=== PATIENT | male | born 1945 | race Caucasian/White ===

== ENCOUNTER 2017-10-19 10:19 | Inpatient (IN) | payer MEDICARE, OTHER ==
[~2017-10-19] VITALS: Ht 180.3 cm; Wt 87.5 kg
[~2017-10-19 10:19] MED LIST: CRESTOR20 MG PO; CYMBALTA60 MG PO; LISINOPRIL10 MG PO; NORCO 5-325 TA1 EACH PO
[2017-10-19 10:22] VITALS: BP 102/60
[2017-10-19 11:01] LABS: INFLUENZA A ANTIGEN None Detected (None Detect)
[2017-10-19 11:36] LABS: URINE BILIRUBIN NEGATIVE (Negative); URINE BLOOD TRACE (Negative); URINE CLARITY CLEAR; URINE COLOR YELLOW; URINE GLUCOSE-RANDOM NEGATIVE (Negative); URINE KETONES NEGATIVE (Negative); URINE LEUKOCYTES-REFLEX NEGATIVE (Negative); URINE NITRITE-REFLEX NEGATIVE (Negative); URINE PROTEIN 1+ (Negative); URINE SPECIFIC GRAVITY 1.025 (1.005-1.030); URINE UROBILINOGEN 0.2 E.U./dl (0.2-1.0)
[2017-10-19 12:04] LABS: ABSOLUTE LYMPHOCYTES 0.6 thou/uL (0.8-5.3); ABSOLUTE MONOCYTES 0.6 thou/uL (0.0-1.2); ABSOLUTE NEUTROPHILS 3.8 thou/uL (1.6-8.1); BASOPHILS 0.7 %; EOSINOPHILS 0.1 %; HEMATOCRIT 45.5 % (42.0-52.0); HEMOGLOBIN 15.1 gm/dL (14.0-18.0); LYMPHOCYTES 12.7 %; MCHC 33.2 g/dL (28.0-37.0); MCV 90.3 fL (80.0-100.0); MONOCYTES 11.1 %; MPV 7.2 fl. (7.2-11.1); NUCLEATED RBCS 0 /100WBC; PLATELET COUNT* 172 thou/uL (150-400); POLYS 75.4 %; RBC 5.03 mil/uL (4.50-6.00); RDW-CV 13.4 % (10.5-14.5); WBC 5.1 thou/uL (4.0-11.0)
[2017-10-19 12:14] LABS: ANION GAP 5 mmol/L (7-16); BUN 15 mg/dL (7-18); CALCIUM 7.9 mg/dL (8.5-10.1); CHLORIDE 102 mmol/L (98-107); CO2 30 mmol/L (21-32); CREATININE 1.5 mg/dL (0.6-1.3); GLUCOSE 102 mg/dL (70-99); POTASSIUM 4.7 mmol/L (3.5-5.1); SODIUM 137 mmol/L (136-145)
[2017-10-19 12:17] LABS: APTT 28.9 Seconds (25.0-31.3); INR 1.1; PROTIME 10.7 Seconds (9.20-11.50)
[2017-10-19 12:21] LABS: ALBUMIN 3.6 g/dL (3.4-5.0); ALKALINE PHOSPHATASE 63 U/L (46-116); LIPASE 164 U/L (73-393); SGOT 19 U/L (15-37); SGPT 23 U/L (30-65); TOTAL BILIRUBIN 0.6 mg/dL (<0.1-1.0); TOTAL PROTEIN 7.3 g/dL (6.4-8.2); TROPONIN-I LEVEL <0.06 ng/mL (<0.06)
[2017-10-19 13:41] VITALS: BP 152/70
[2017-10-19 14:00] VITALS: BP 138/68
[2017-10-19] MEDS ORDERED: ABILIFY 5 MG TAB5 M1 PO (14:51)
[2017-10-19] MEDS ORDERED: ASPIR 8181 MG PO (14:52)
--- NOTE | 2017-10-19 16:35 | EKG ---
[place] [address] ELECTROCARDIOGRAM REPORT Name: PATRICK CARLISLE Room: [place] [address] ADM IN .R.#: [id number] Admission: 10/19/17 Attend Phys: Christiano Ellsworth Discharge: Date of : 41 Report #: [id number] THIS REPORT FOR: //name// [facility] ED Test Date: 2017-10-19 Test Time: 10:27:34 Pat Name: PATRICK CARLISLE Department: Room: [facility] Gender: M Animal Skinner: Corrie GARAY : 1945 Requested By: Valerio Bobby Order Number: [id number] MD: Rodney Mcallister Measurements Intervals Norris Rate: 60 P: 56 CO: 155 QRS: 86 QRSD: 90 T: 45 QT: 385 QTc: 385 Interpretive Statements Sinus rhythm Borderline right axis deviation Low voltage, extremity leads No previous ECG available for comparison Electronically Signed On 10-19-2017 16:35:18 HEAD OF OPERATION AND LOGISTICS by Rodney Mcallister [email or web address] <ELECTRONICALLY SIGNED> By: Rodney Mcallister MD, [facility] 10/19/17 1635 26 102 Rodney Mcallister MD, FACC /EPI
--- NOTE | 2017-10-19 18:48 | NUR ---
RECEIVED PT FROM ER 1400. PATIENT IS ALERT/ORIENTED X4. SLOW TO ANSWER QUESTIONS AND HARD OF HEARING. UP WITH ASSIST X1 IN ROOM WITH BATHROOM PRIVILEDGES. GAIT IS UNSTEADY AT THIS TIME AND PATIENT IS A FALL RISK. FALL RISK AGREEMENT SIGNED AND ON CHART. IVF INFUSING. ADMISSION ASSESSMENT AND HISTORY COMPLETE. BED ALARM ON. CALL LIGHT WITHIN REACH. WILL CONTINUE PLAN OF CARE.
[2017-10-20] VITALS: BP 113/44
[2017-10-20 04:00] VITALS: BP 99/48
--- NOTE | 2017-10-20 04:20 | NUR ---
RESTING MOST OF NIGHT WITHOUT COMPLAINTS. DENIES PAIN OR DISCOMFORT. ON ISOLATION. UP AD JOANA TO RESTROOM. DENIES COMPLAINTS OF PAIN OR DISCOMFORT. NO SIGN OF DISTRES. WILL CONT. TO MONITOR.
[2017-10-20 08:00] VITALS: BP 118/63
--- NOTE | 2017-10-20 10:11 | NUR ---
ORDER RECEIVED FOR "OT EVALUATION AND TREATMENT". ENTERED PATIENT'S ROOM AND SPOKE WITH PATIENT FOR LESS THAN 8 MINUTES. ON ENTRY, PT AMBULATING I WITHIN ROOM AND STATING THAT HE HAS JUST SHOWERED WITHOUT ASSIST WHILE STANDING AND IS NOW SHAVING I AT SINK. REPORTS NO DIZZINESS, AND STATES, "I DON'T HAVE A FEVER ANYMORE". PT WITH NO NEED FOR SKILLED INTERVENTION AT THIS TIME.
--- NOTE | 2017-10-20 11:36 | NUR ---
CM SPOKE TO THE PATIENT TO DISCUSS HOME SITUATION, DISCHARGE PLANNING, AND TO INFORM OF THE ROLE OF CM. PATIENT ALERTAND ORIENTED. PATIENT WALES, AND STATES THAT HE HAS ASKED HIS TO BRING HIS HEARING AIDES TO THE HOSPITAL TODAY. PATIENT DRIVES. PATIENT RESIDES AT HOME WITH . PATIENT STATES THAT HE AND HIS SPOUSE MOSTLY EAT OUT. PATIENT OWNS 0 DME. PATIENT HAS NO HX OF HH OR SNF. PATIENT PLANS TO RETURN HOME AT D/C. CM WILL REMAIN AVIALABLE TO ASSIST AND FOLLOW NEEDED.
[2017-10-20 11:53] VITALS: BP 102/55
--- NOTE | 2017-10-20 13:38 | NUR ---
PT'S MEDICAL CHART REVIEWED AND STATUS DISCUSSED W/ NSG. PT UP AD JOANA IN ROOM W/O DME , USING IV POLE. PT VOICES NO CONCERNS REGARDING RETURN TO HOME. STATES HE HAS SUPPORTIVE . ACUTE PT SERVICES ARE NOT INDICATED AT THIS TIME.
[2017-10-20] MEDS ORDERED: OSELB75 PO (14:05)
--- NOTE | 2017-10-20 14:57 | NUR ---
CM WAS INFORMED BY NURSING THAT THE PATIENT WOULD BE D/C'D TODAY. CM SPOKE TO THE PATIENT TO DISCUSS DISCHARGE PLANNING NEEDS AND ANY QUESTIONS OR CONCERNS THAT HE MAY HAVE. PATIENT HAS NO QUESTIONS OR CONCERNS AT THIS TIME, AND DECLINES ANY NEEDS. CM WILL REMAIN AVIALABLE TO ASSIST AND FOLLOW NEEDED.
[2017-10-20 16:24] VITALS: BP 102/55
--- NOTE | 2017-10-20 17:50 | NUR ---
VSS, ASSUMED CARE IN THE AM, ASSESSMENT PERFORMED AND CHARTED, FALL PRECAUTIONS IN PLACE AND CALL LIGHT IN REACH, PT IS A&O4 AND HARD OF HEARING, PT IS UP AD JOANA AND ON RA TRACING SR ON THE MONITOR AND DENIES ANY PAIN, SD GOAL IS TO COMPLETE MRI AND D/C TO HOME ON DAY OF CARE. AT THIS TIME I HAVE RECEVED D/C INSTRUCTIONS, FILLED OUT PT D/C PAPERS PROVITED, MEDICATIIONS CHECKED AND SCRIPTS GIVEN, PT DENIES ANY QUESTIONS OR CONCERNS AT TIME OF D/C IV, AND TELE MONITOR TAKEN OFF, ALL PT BELONGINGS GATHERED AND PLACED WITH PT, PT WAS TAKEN OUT BY WHEEL CHAIR TO CAR WITH STAFF AND SPOUCE, HOURLY ROUNDS COMPLETED AT THIS TIME, AND PT DENIES ANY QUESTIONS OR CONCERNS AT TIME OF D/C
[2018-02-03] MEDS ORDERED: TRAMADOL 50 MG50 MG PO (11:09)
== END 2017-10-20 18:12 | disposition home or self-care (01) | DRG 70 ==
LOC: M.ERS 10:19 → M.2W 12:38 → M.TBA-ER 12:38 → M.2W 13:58
PROVIDERS: Family Medicine; ADMIT Internal Medicine
DX: G93.41 Metabolic encephalopathy (principal); N17.0 Acute kidney failure with tubular necrosis; J11.1 Influenza due to unidentified influenza virus with other respiratory manifestations; I10 Essential (primary) hypertension; E86.0 Dehydration; F32.9 Major depressive disorder, single episode, unspecified; E78.5 Hyperlipidemia, unspecified

== ENCOUNTER → 2018-02-03 | Day surgery (SDC) | payer MEDICARE, OTHER ==
[~2018-02-03] MED LIST changes: +ABILIFY 5 MG TAB5 M1 PO; +ASPIR 8181 MG PO; +OSELB75 PO; +TRAMADOL 50 MG50 MG PO
[2018-02-03 08:00] LABS: HEMATOCRIT 41.8 % (42.0-52.0); HEMOGLOBIN 14.4 gm/dL (14.0-18.0); MCH 30.1 pg (26.0-34.0); MCHC 34.6 g/dL (28.0-37.0); MPV 7.5 fl. (7.2-11.1); RBC 4.8 mil/uL (4.50-6.00); RDW-CV 13.8 % (10.5-14.5); WBC 6.6 thou/uL (4.0-11.0)
[2018-02-03 08:03] LABS: CALCIUM 8.5 mg/dL (8.5-10.1); CREATININE 1.4 mg/dL (0.6-1.3); POTASSIUM 4.1 mmol/L (3.5-5.1)
[2018-02-03 08:08] LABS: ALBUMIN 3.6 g/dL (3.4-5.0); TOTAL BILIRUBIN 0.8 mg/dL (<0.1-1.0); TOTAL PROTEIN 7.3 g/dL (6.4-8.2)
--- NOTE | 2018-02-14 14:38 | OP ---
[address] [address] OPERATIVE REPORT Name: PATRICK CARLISLE JR Room: [facility]#: [id number] Admission: 02/03/18 Attend Phys: Elyse Naqvi DO Discharge: Date of : 41 Report #: [id number] THIS REPORT FOR: //name// CC: Elyse Hubbard DATE OF SERVICE: 02/03/2018 PREOPERATIVE DIAGNOSIS: Recurrent right inguinal hernia. POSTOPERATIVE DIAGNOSIS: Recurrent right inguinal hernia with a direct defect. FINDINGS: A recurrence of a direct defect along the pubic tubercle. The hernia defect contained reducible omentum. SURGEON: Elyse Naqvi DO. JAVA XML DEVELOPER: Franklin Pagan, PGY-3 and Mason Nielsen PGY1. PROCEDURE: Repair of recurrent right inguinal hernia with mesh. ANESTHESIA: General endotracheal and local. ESTIMATED BLOOD LOSS: 10 mL. DRAINS: None. SPECIMENS: None. COMPLICATIONS: None. CONDITION: Stable. DISPOSITION: PACU to home. HISTORY OF PRESENT ILLNESS: The patient is a very pleasant 73-year-old male who is known to me after a hernia repair several years ago. He had done well until several months ago when he began to have pain and a bulge in the right groin area. On physical exam, he had an obvious recurrence of the right inguinal hernia. He was then consented for repair of this area with possible mesh. Risks discussed included bleeding, infection, pain, scar formation, recurrence, mesh complications, injury to the bladder, injury to cords and risks of general anesthesia. The patient understood these risks and elected to proceed. DESCRIPTION OF PROCEDURE: The patient was brought to the operating room. He was laid supine on the operating room table[place] [address] OPERATIVE REPORT Name: PATRICK CARLISLE JR Room: [facility].#: [id number] Admission: 02/03/18 Attend Phys: Elyse Naqvi DO Discharge: Date of : 41 Report #: [id number] lower extremities. Ancef was given in the perioperative period. General endotracheal anesthesia was induced by anesthesia without difficulty. Abdomen was prepped and draped in standard sterile fashion. Timeout was performed to verify patient and procedure. I marked out the ASIS to the pubic tubercle. An incision was marked out in this area to include his previous incision. 10 mL of 0.5% Marcaine were injected in the area. Incision was made with #15 blade. Cautery was used for hemostasis. Then, using a combination of blunt and cautery dissection, I dissected down until the external abdominal oblique fascia was identified. This was raised between two Ashlie clamps and was incised using Metzenbaums. We did encounter a fair bit of scar tissue at this point, which was gently dissected down using a combination of cautery and Metzenbaum dissection. I then easily identified the cord structures, they were cleared from the pubic tubercle and from thereafter were protected with gentle traction using a Sara drain. With the cords retracted laterally, a direct defect was then easily visualized, it appeared to contain reducible omentum. The hernia sac was gently elevated using a Ashlie clamp and was completely cleared from the surrounding tissues with blunt and Ashlie dissection. Once all adhesions were cleared, I was then able to easily reduce the entirety of the hernia into the abdomen. The floor of the inguinal canal was then cleared of any further adhesions. A ProGrip mesh was then brought on to the field and a donavon-shaped mesh was cut. It was initially deployed along the pubic tubercle and then was laid to cover the entirety of the direct defect. The tip of the mesh landed just superior to the internal ring. The mesh was then sutured into place using multiple interrupted stitches of 2-0 Prolene with excellent approximation. There was no further bulging noted. A 10 mL of 0.5% Marcaine were injected along the pubic tubercle and along the mesh. Cord structures were released from the Sara drain and were allowed to fall into their anatomical position. There was no tension noted on the cords. The external abdominal oblique fascia was closed in a running fashion using a 3-0 Vicryl. Subcutaneous tissues were closed in a layered fashion using deep and superficial stitches of 3-0 Vicryl in inverted interrupted fashion. Skin was closed with a running 4-0 Monocryl. 10 mL of 0.5% Marcaine were then injected in a block-type fashion, one fingerbreadth in from of the ASIS. A total of 50 mL of 0.5% Marcaine were used to anesthetize the wound. The wound was then cleansed and covered with Mastisol, Steri-Strips, 4 x 4's and a Tegaderm. The patient was then allowed to awaken from anesthesia, was extubated and transported to the recovery room with no further difficulties. Counts were correct times 2 at the conclusion of the case. Abdominal binder was placed in the operating room. <ELECTRONICALLY SIGNED> By: Elyse Naqvi DO 02/14/18 1438 1051 1229Chcharlotte Naqvi, DO /nt
== END | disposition home or self-care (01) ==
LOC: M.SUR
PROVIDERS: Surgery
DX: K40.91 Unilateral inguinal hernia, without obstruction or gangrene, recurrent (principal); I10 Essential (primary) hypertension; E78.5 Hyperlipidemia, unspecified; F32.9 Major depressive disorder, single episode, unspecified; Z87.442 Personal history of urinary calculi; Z98.890 Other specified postprocedural states; Z79.82 Long term (current) use of aspirin; Z79.899 Other long term (current) drug therapy

== ENCOUNTER → 2018-02-06 | Outpatient (CLI) | payer MEDICARE, OTHER ==
--- NOTE | 2018-02-06 11:50 | 2DMMODE ---
[place] [address] 2 D/M-MODE ECHOCARDIOGRAM Name: PATRICK CARLISLE JR Room: [facility]#: [id number] Admission: 02/06/18 Attend Phys: Kd Kearney MD Discharge: Date of : 41 Date of Service: 02/06/18 1150 Report #: [id number] THIS REPORT FOR: //name// APPROVED REPORT Study performed: 02/06/2018 08:12:51 EXAM: Comprehensive 2D, Doppler, and color-flow Echocardiogram, Bubble Study Patient Location: Out-Patient Status: routine BSA: 2.03 HR: 56 bpm BP: 118/75 mmHg Other Information Study Quality: Good Indications CVA/TIA 2D Dimensions LVEF(%): 66.87 (>50%) IVSd: 10.02 (7-11mm) LVOT Diam: 20.46 (18-24mm) LVDd: 47.72 mm PWd: 9.30 (7-11mm) Ascending Ao: 27.82 (22-36mm) LVDs: 30.05 (25-40mm) Aortic Root: 29.63 mm Goldstein's LVEF: 66.87 % Volumes Left Atrial Volume (Systole) LA ESV Index: 16.90 mL/m2 Aortic Valve AoV Peak Manish.: 1.14 m/s AO Peak Gr.: 5.22 mmHg LVOT Max P.88 mmHg AO Mean Gr.: 2.65 mmHg LVOT Mean P.22 mmHg LVOT Max V: 1.21 m/s AO V2 VTI: 24.21 cm LVOT Mean V: 0.66 m/s JOURDAN (VTI): 3.39 cm2 LVOT V1 VTI: 24.97 cm Mitral Valve E/A Ratio: 1.08 MV Decel. Time: 217.55 [place] [address] 2 D/M-MODE ECHOCARDIOGRAM Name: PATRICK CARLISLE JR Room: [facility]#: [id number] Admission: 02/06/18 Attend Phys: Kd Kearney MD Discharge: Date of : 41 Date of Service: 02/06/18 1150 Report #: [id number] MV E Max Manish.: 0.65 m/s MV PHT: 63.09 ms MVA (PHT): 3.49 cm2 TDI E/Lateral E': 8.13 E/Medial E': 7.22 Medial E' Manish.: 0.09 m/s Lateral E' Manish.: 0.08 m/s Pulmonary Valve PV Peak Manish.: 1.00 m/s PV Peak Gr.: 4.02 mmHg Tricuspid Valve TR Peak Gr.: 22.18 mmHg RVSP: 27.18 mmHg Left Ventricle The left ventricle is normal size. There is normal LV segmental wall motion. There is normal left ventricular wall thickness. Left ventricular systolic function is normal. The left ventricular ejection fraction is within the normal range. LVEF is 55-60%. The left ventricular diastolic function is normal. Right Ventricle The right ventricle is normal size. The right ventricular systolic function is normal. Atria The left atrium size is normal. Injection of bubbles documented no interatrial shunt. The right atrium size is normal. Aortic Valve The aortic valve is normal in structure. No aortic regurgitation is present. There is no aortic valvular stenosis. Mitral Valve The mitral valve is normal in structure. Mild mitral regurgitation. No evidence of mitral valve stenosis. Tricuspid Valve The tricuspid valve is normal in structure. Mild tricuspid regurgitation. The RVSP is __27.2 mmHg. Pulmonic Valve The pulmonary valve is normal in structure. [place] [address] 2 D/M-MODE ECHOCARDIOGRAM Name: MAYLINPATRICK REMI ROJAS Room: [facility]#: [id number] Admission: 02/06/18 Attend Phys: Kd Kearney MD Discharge: Date of : 41 Date of Service: 02/06/18 1150 Report #: [id number] Great Vessels The aortic root is normal in size. IVC is normal in size and collapses with >50% inspiration Pericardium There is no pericardial effusion. <Conclusion> LVEF is 55-60%. Injection of bubbles documented no interatrial shunt. Mild mitral regurgitation. <ELECTRONICALLY SIGNED> By: Rodney Mcallister MD, FACC 02/06/18 1150 1150 1150 Rodney Mcallister MD, FACC /INF
== END ==
LOC: M.CRD 07:23
DX: I08.1 Rheumatic disorders of both mitral and tricuspid valves (principal); I63.9 Cerebral infarction, unspecified; G45.9 Transient cerebral ischemic attack, unspecified

== ENCOUNTER → 2018-03-03 | Outpatient (CLI) | payer MEDICARE, OTHER ==
[2018-03-03 08:59] LABS: ABSOLUTE EOSINOPHILS 0.2 thou/uL (0.0-0.7); ABSOLUTE LYMPHOCYTES 1.2 thou/uL (0.8-5.3); ABSOLUTE MONOCYTES 0.5 thou/uL (0.0-1.2); ABSOLUTE NEUTROPHILS 3.5 thou/uL (1.6-8.1); BASOPHILS 0.6 %; EOSINOPHILS 4.4 %; HEMATOCRIT 42.4 % (42.0-52.0); HEMOGLOBIN 14.2 gm/dL (14.0-18.0); LYMPHOCYTES 22.2 %; MCHC 33.4 g/dL (28.0-37.0); MCV 89.6 fL (80.0-100.0); MONOCYTES 8.4 %; MPV 7.1 fl. (7.2-11.1); NUCLEATED RBCS 0 /100WBC; PLATELET COUNT* 249 thou/uL (150-400); POLYS 64.4 %; RBC 4.73 mil/uL (4.50-6.00); WBC 5.5 thou/uL (4.0-11.0)
[2018-03-03 09:19] LABS: ALBUMIN 3.6 g/dL (3.4-5.0); CALCIUM 8.8 mg/dL (8.5-10.1); CREATININE 1.4 mg/dL (0.6-1.3); POTASSIUM 4.5 mmol/L (3.5-5.1); TOTAL BILIRUBIN 0.6 mg/dL (<0.1-1.0); TOTAL PROTEIN 7.4 g/dL (6.4-8.2)
[2018-03-03 09:58] LABS: ESR (SEDRATE) 18 mm/hr (0-20)
== END ==
LOC: M.LAB 08:39
PROVIDERS: Psychiatry & Neurology Neuromuscular Medicine
DX: F32.4 Major depressive disorder, single episode, in partial remission (principal); R41.3 Other amnesia; R93.8 Abnormal findings on diagnostic imaging of other specified body structures

== ENCOUNTER → 2018-07-28 | Outpatient (CLI) | payer MEDICARE, OTHER | LOC: M.ULTRA 10:02 | DX: I65.23 Occlusion and stenosis of bilateral carotid arteries (principal); E78.5 Hyperlipidemia, unspecified; F41.9 Anxiety disorder, unspecified; Z86.73 Personal history of transient ischemic attack (TIA), and cerebral infarction without residual deficits; Z86.59 Personal history of other mental and behavioral disorders ==

== ENCOUNTER → 2019-08-06 | Outpatient (CLI) | payer MEDICARE, OTHER | LOC: M.MRI 13:05 | DX: G31.9 Degenerative disease of nervous system, unspecified (principal); R90.82 White matter disease, unspecified; G45.9 Transient cerebral ischemic attack, unspecified ==